=== PATIENT | male | born 2000 | race Caucasian/White ===

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

== ENCOUNTER 2023-10-01 20:22 | Emergency (ER) | payer BC, SELFPAY ==
--- NOTE | ~2023-10-01 | XR_ITS ---
EXAMINATION: XR hand LT min 3V DATE: 10/01/2023 21:07 INDICATION: Left hand pain. Injury. TECHNIQUE: 3 views of left hand were obtained. COMPARISON: None. FINDINGS: Bone alignment is normal. No fracture. Joint spaces are normal. IMPRESSION: 1. No fracture. Reviewed, dictated and finalized at location E. N'S COUNSEL IMPRESSION: 1. No fracture.
[2023-10-01 20:36] VITALS: BP 147/72; PULSE 98; RESP 16; TEMP 36.6; O2SAT 100
--- NOTE | 2023-10-01 20:58 | ED.UPPEXIN ---
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 Reports he was trying to take a refrigerator door handle off and accidentally stabbed his hand. He has had worsening pain in his left thumb. Reports decreased ROM due to pain. Denies numbness. Related Data Allergies Allergy/AdvReac Type Severity Reaction Status Date / Time No Known Allergies Allergy Mild Verified 10/01/23 20:25 Review of Systems Review of Systems: CONSTITUTIONAL: Denies fever SKIN: Reports puncture wound MUSCULOSKELETAL: Reports joint pain, and myalgia. NEUROLOGIC: Denies numbness, or weakness. All systems reviewed & are unremarkable except as noted in HPI and below PMFSH Past Medical History Medical History (Updated 10/01/23 @ 22:02 by Vida Castro PA-C) No active medical problems Social History Social History (Updated 10/01/23 @ 21:01 by Vida Castro PA-C) Substance use: never Exam Narrative: GENERAL: Well-appearing, well-nourished, and in no acute distress. HEAD: Normocephalic, atraumatic. EYES: EOMI. EXTREMITIES: Normal range of motion. No edema, erythema or obvious deformity. Normal radial pulse. Normal sensation SKIN: Warm, dry, no rash. NEURO: No focal deficits. Alert and oriented x3. PSYCH: Normal mood and affect Course Course Emergency Course: Patient updated on workup and agrees with plan of care Vital Signs Vital signs: Vital Signs Temperature 97.9 F 10/01/23 20:36 Pulse Rate 98 10/01/23 20:36 Respiratory Rate 16 10/01/23 20:36 Blood Pressure 147/72 H 10/01/23 20:36 Pulse Oximetry 100 10/01/23 20:36 Temperature 97.9 F 10/01/23 20:36 Pulse Rate 98 10/01/23 20:36 Respiratory Rate 16 10/01/23 20:36 Blood Pressure 147/72 H 10/01/23 20:36 Pulse Oximetry 100 10/01/23 20:36 MDM - Extremity Injury (Upper) MDM Narrative Medical decision making narrative: Patient presents to the ER after a puncture wound to the left hand sustained this afternoon. Patient with small puncture wound to the left hand. This was cleansed. Patient was updated on tetanus vaccination. Patient is neurovascularly intact. Hand x-ray without acute osseous abnormalities. patient will be started on prophylactic antibiotics. He is to follow up with primary provider. He was given warnings to return to the ER Imaging Data Radiologist's impression: ITS Impressions Hand X-Ray 10/01/23 21:17 IMPRESSION: 1. No fracture. Critical Care Time Critical Care Time Critical Care Time: No Discharge Plan Discharge Clinical Impression: Puncture wound Patient Disposition: Home, Self-Care Condition: Stable Instructions: Antibiotic Form, Puncture Wound (ED) Additional Instructions: Return to the emergency department if you experience fever, redness or swelling of your wound, abnormal drainage from your wound, or any other symptoms that are concerning to you. Take oral antibiotic as prescribed. Apply antibiotic ointment daily. Do not soak the wound. Clean with mild soap and water daily Follow-up with your primary care doctor for wound check Prescriptions: New cephalexin 500 mg capsule 500 mg PO Q8H 5 Days Qty: 15 0RF Follow-up/Referrals: Ashutosh,MARU Up [Primary Care Provider] -
[2023-10-01] MEDS: TETANUS,DIPHTHERIA,AC PERTUSSIS ADULT (0.5 ML) BOOSTRIX IM (21:07)
[2023-10-01 22:15] VITALS: BP 138/72; PULSE 82; RESP 18; TEMP 36.8; O2SAT 99
== END 2023-10-01 22:16 | disposition home or self-care (01) ==
PROVIDERS: Emergency Provider Physician Assistant; PCP Physician Assistant
DX: S61.432A Puncture wound without foreign body of left hand, initial encounter (principal); Z23 Encounter for immunization; W27.0XXA Contact with workbench tool, initial encounter
CPT/HCPCS: 73130; 90471; 90715; 99283